=== PATIENT | female | born 1960 | race Caucasian/White ===

== ENCOUNTER 2018-12-24 21:46 | Emergency (ER) | payer OTHER ==
[~2018-12-24] VITALS: Ht 170.2 cm; Wt 58.1 kg
[2018-12-25] MEDS ORDERED: LISI5 (01:11)
[2018-12-25] MEDS ORDERED: PHENY30ER (01:11)
== END 2018-12-25 02:39 | disposition home or self-care (01) ==
LOC: ER 21:46
DX: S52.531A Colles' fracture of right radius, initial encounter for closed fracture (principal); W01.198A Fall on same level from slipping, tripping and stumbling with subsequent striking against other object, initial encounter; Z79.899 Other long term (current) drug therapy; I10 Essential (primary) hypertension; Z87.891 Personal history of nicotine dependence
CPT/HCPCS: 29130; 73090; 73110; 99283-25; A9270